=== PATIENT | male | born 2000 | race African-American/Black ===

== ENCOUNTER 2018-05-04 01:06 | Emergency (ER) | payer OTHER ==
[~2018-05-04] VITALS: Ht 167.6 cm; Wt 68.2 kg
[2018-05-04 01:07] VITALS: BP 130/72
== END 2018-05-04 02:28 | disposition home or self-care (01) ==
LOC: M ED 01:06
DX: Z48.89 Encounter for other specified surgical aftercare (principal)

== ENCOUNTER → 2018-08-31 | Outpatient (REF) | payer OTHER ==
[2018-08-31 21:07] LABS: CHLAMYDIA DNA AMPLIFICATION POSITIVE (NEGATIVE); GC DNA AMPLIFICATION NEGATIVE (NEGATIVE)
== END ==
LOC: M SFHCLERA 13:01
PROVIDERS: ATTEND Physician Assistant
DX: Z20.9 Contact with and (suspected) exposure to unspecified communicable disease (principal)
CPT/HCPCS: 81002; 87661; G0463

== ENCOUNTER 2018-10-04 18:45 | Emergency (ER) | payer OTHER ==
[~2018-10-04] VITALS: Ht 167.6 cm; Wt 69.4 kg
[2018-10-04 18:45] VITALS: BP 123/61
[2018-10-04] MEDS ORDERED: LIDOCAINE 5% (LIDODERM) PATCH TD ONE (20:45)
[2018-10-04] MEDS: **NOTE PATIENT COMMENT** MISC XX SCH ×2 (21:10→21:35)
[2018-10-04] MEDS ORDERED: NAPR-837 PO (21:27)
[2018-10-04] MEDS ORDERED: ROBA500T PO (21:27)
[2018-10-04] MEDS ORDERED: METHOCARBAMOL 750 MG TAB PO ONE (21:30)
--- NOTE | 2018-10-05 02:56 | REP ---
Clinical: Left chest and mid back pain . Comparison: None . Technique: PA and lateral. Findings: The mediastinum and cardiac silhouette are normal. The lung evans are clear and without acute consolidation, effusion, or pneumothorax. The skeletal structures are intact and normal. Impression: 1. No acute cardiopulmonary process. Electronically Signed by Quoc Pandey MD 10/05/2018 02:48 A
== END 2018-10-04 21:36 | disposition home or self-care (01) ==
LOC: M ED 18:45
DX: M62.830 Muscle spasm of back (principal)

== ENCOUNTER 2021-01-13 21:14 | Emergency (ER) | payer OTHER ==
[~2021-01-13] VITALS: Ht 167.6 cm; Wt 75.0 kg
[~2021-01-13 21:14] MED LIST: NAPR-837 PO; ROBA500T PO
--- OUTSIDE RECORDS SUMMARY | 2021-01-13 21:19 | CCD ---
Author Author [facility] Organization [facility] Address Unknown Phone Unavailable Support Name Relationship Address Phone DILIA NASSAR Next Of Kin [id number] [place] [address] [employer] Next Of Kin [address] [place] [address] Unavailable LIA MOISE Next Of Kin [address] [place] [address] Re-disclosure Warning The records that you are about to access may contain information from federally-assisted alcohol or drug abuse programs. If such information is present, then the following federally mandated warning applies: This information has been disclosed to you from records protected by federal confidentiality rules (42 CFR part 2). The federal rules prohibit you from making any further disclosure of this information unless further disclosure is expressly permitted by the written consent of the person to whom it pertains or as otherwise permitted by 42 CFR part 2. A general authorization for the release of medical or other information is NOT sufficient for this purpose. The Federal rules restrict any use of the information to criminally investigate or prosecute any alcohol or drug abuse patient.The records that you are about to access may contain highly sensitive health information, the redisclosure of which is protected by Article 27-F of the [facility] Public Health law. If you continue you may have access to information: Regarding HIV / AIDS; Provided by facilities licensed or operated by the [facility] Office of Mental Health; or Provided by the [facility] Office for People With Developmental Disabilities. If such information is present, then the following [facility] mandated warning applies: This information has been disclosed to you from confidential records which are protected by state law. State law prohibits you from making any further disclosure of this information without the specific written consent of the person to whom it pertains, or as otherwise permitted by law. Any unauthorized further disclosure in violation of state law may result in a fine or half-way sentence or both. A general authorization for the release of medical or other information is NOT sufficient authorization for further disc losure. Medications No Information Insurance Providers Payer name Policy type / Coverage type Policy ID Covered republican ID Covered republican's relationship to mane Policy Mane Plan Information [facility] ACTIVE DUTY [id number] SELF PAY ONLY SP ANSI-Not a Secondary Insurance [id number] Problems, Conditions, and Diagnoses No Information Surgeries/Procedures No Information Results No Information Social History No Information
--- OUTSIDE RECORDS SUMMARY | 2021-01-14 06:36 | CCD ---
Author Author [facility] Organization [facility] Address Unknown Phone Unavailable Support Name Relationship Address Phone DILIA NASSAR Next Of Kin [address] [place] [address] [employer] Next Of Kin [address] [place] [address] Unavailable LIA MOISE Next Of Kin [address] [place] [address] Re-disclosure Warning The records that [...] is protected by Article 27-F of the [facility] Public Health law. If you continue you may have access to information: Regarding HIV / AIDS; Provided by facilities licensed or operated by the [facility] Office of Mental Health; or Provided by the [facility] Office for People With Developmental Disabilities. If such information is present, then the following [facility] mandated warning applies: This information has been [...] law may result in a fine or residential sentence or both. A general authorization for the release of medical or other information is NOT sufficient authorization for further disc losure. Medications No Information Insurance Providers Payer name Policy type / Coverage type Policy ID Covered libertarian ID Covered libertarian's relationship to mane Policy Mane Plan Information [facility] ACTIVE DUTY [id number] SELF PAY ONLY SP ANSI-Not a Secondary Insurance [id number] Problems, Conditions, and Diagnoses No Information Surgeries/Procedures No Information Results No Information Social History No Information
[2021-01-14] MEDS ORDERED: LIDOCAINE 5% (LIDODERM) PATCH TD ONE (07:05)
[2021-01-14] MEDS ORDERED: KETOROLAC 60MG 2ML VIAL IM ONE (07:05)
--- NOTE | 2021-01-14 08:34 | REP ---
INDICATION: UPPER BACK PAIN. COMPARISON: 10/04/2018. TECHNIQUE: Four AP and lateral views thoracic spine. FINDINGS: There is no compression fracture or malalignment. There is normal thoracic kyphosis. Disc spaces are well preserved. Posterior elements are intact. IMPRESSION: Negative thoracic spine series. <Electronically signed by Madhu Contreras > 01/14/21 [id number]
[2021-01-14] MEDS ORDERED: LIDO1PAD TOP (08:53)
[2021-01-14] MEDS ORDERED: NAPR-837 PO (08:53)
[2021-01-14] MEDS ORDERED: METH-1165 PO (08:53)
[2021-01-14] MEDS ORDERED: diazePAM 5MG TABLET PO ONE (09:00)
[2021-01-14 09:23] VITALS: BP 141/72
[2021-01-14] MEDS ORDERED: **NOTE PATIENT COMMENT** MISC XX SCH (21:00)
== END 2021-01-14 09:28 | disposition home or self-care (01) ==
LOC: M ED 21:14
DX: M54.9 Dorsalgia, unspecified (principal)
CPT/HCPCS: 72072; 96372; 99283; J1885